=== PATIENT | female | born 1995 | race Caucasian/White ===

== ENCOUNTER 2018-02-02 18:22 | Emergency (ER) | payer OTHER ==
[~2018-02-02] VITALS: Ht 160 cm; Wt 95.3 kg
[2018-02-02 18:30] VITALS: BP 119/71
== END 2018-02-02 21:50 | disposition left against medical advice (07) ==
LOC: ER 18:22
DX: R51 Headache (principal); Z53.21 Procedure and treatment not carried out due to patient leaving prior to being seen by health care provider